=== PATIENT | male | born 1935 | race Caucasian/White ===

== ENCOUNTER 2020-09-17 01:16 | Emergency (ER) | payer MEDICARE ==
[2020-09-17 02:10] LABS: #Eosinphils 0.1 thou/uL (0.0-0.7); #Monocytes 0.8 thou/uL (0.11-0.59); #Neutrophils 6.2 thou/uL (1.40-6.50); %Basophils 0.5 % (0.0-1.0); %Lymphocytes 12.5 % (21.0-51.0); %Monocytes 9.5 % (0.0-10.0); %Neutrophils 76.6 % (42.0-75.0); Hemoglobin 15.6 g/dL (14.0-18.0); Mean Corpuscular HGB CONC 33.3 g/dL (32.0-36.0); Mean Corpuscular Volume 93.3 fL (78.0-98.0); Mean Platelet Volume 8.4 fL (7.4-10.4); Platelet Count 189 thou/uL (130-400); RBC Distribution Width 12.7 % (11.5-14.5); Red Blood Cell (RBC) Count 5.03 mill/uL (4.70-6.10); White Blood Cell (WBC) Count 8.2 thou/uL (4.8-10.8)
[2020-09-17 02:51] LABS: Albumin 3.8 g/dL (3.4-4.8)
[2020-09-17 02:52] LABS: Chloride 106 mmol/L (98-107); Potassium 3.7 mmol/L (3.5-5.1); Sodium 143 mmol/L (136-145)
[2020-09-17 02:53] LABS: Calcium 8.5 mg/dL (7.8-10.44); Glucose 92 mg/dL (83-110)
[2020-09-17 02:54] LABS: Globulin 1.9 g/dL (2.4-3.5); Protein, Total 5.7 g/dL (5.8-8.1)
[2020-09-17 02:55] LABS: Bilirubin Negative (Negative); Blood, Urine Negative (Negative); Clarity Clear (Clear); Glucose, Urine (Dipstick) Normal (Negative); Ketone, Urine Negative (Negative); Leukocyte Negative Leu/uL (Negative); Nitrite Negative (Negative); Protein, Urine (Dipstick) Negative (Neg-Trace); Specific Gravity, Urine 1.021 (1.002-1.036); Urobilinogen Normal mg/dL (Less than 2); pH, Urine 6.5 (5.0-9.0)
[2020-09-17 02:55] LABS: Anion Gap 13 mmol/L (10-20); Bilirubin, Total 0.7 mg/dL (0.2-1.2); Carbon Dioxide 28 mmol/L (23-31)
[2020-09-17 02:56] LABS: Alkaline Phosphatase 85 U/L (40-110)
[2020-09-17 02:57] LABS: Calc. Creatinine Clearance 0 mL/min (70-130)
[2020-09-17 02:58] LABS: BUN (Urea Nitrogen) 22 mg/dL (8.4-25.7)
[2020-09-17 02:59] LABS: AST (SGOT) 19 U/L (5-34)
[2020-09-17 03:00] LABS: ALT (SGPT) 15 U/L (8-55)
[2020-09-17] MEDS ORDERED: diphenhydrAMINE 25 MG CAP ONE (03:16)
--- NOTE | 2020-09-17 08:12 | CT ---
PRELIMINARY REPORT/[facility]/EMERGENCY AFTER HOURS PROCEDURE: EXAM: CT Head Without Intravenous Contrast. CLINICAL HISTORY: HX OF ALZHEIMER'S. STATES, "HE HAS NOT BEEN ACTING HIMSELF OVER THE PAST 24 HO URS. WE JUST MOVED HERE AND I THINK HE MAY NOT BE ADJUSTING WELL". DENIES ANY RECENT ILLNESS, N/V, FEVER, OR URINARY COMPLAINTS. STATES, "HE HAS BEEN COMBATIVE ALSO". TECHNIQUE: Axial computed tomography images of the head/brain without intravenous contrast. COMPARISON: None provided. FINDINGS: BRAIN: No acute intraparenchymal hemorrhage. No mass lesion. No CT evidence for acute territorial inf arct. No midline shift or extra-axial collection. Mild generalized cerebral atrophy. Mild subcortical and twila-ventricular white matter changes likely related chronic ischemic small vessel di sease. Arteriosclerosis. VENTRICLES: No hydrocephalus. ORBITS: The orbits are unremarkable. SINUSES AND MASTOIDS: The paranasal sinuses and mastoid air cells are clear. SOFT TISSUES: No significant facial or scalp soft tissue swelling evident. No radiopaque foreign body is seen. BONES: No acute skull fracture. IMPRESSION: No acute large vessel infarct, acute intracranial hemorrhage or intracranial mass lesion . ELECTRONICALLY SIGNED BY: Gus Vernon MD Sep 17, 2020 2:11:27 AM HOSPITAL ORDERLY FINAL REPORT EMERGENT AFTER HOURS NONCONTRAST CT HEAD: HISTORY: Altered mental status. COMPARISON: None. IMPRESSION: 1. No acute intracranial abnormality is demonstrated. 2. Cerebral volume loss and chronic small vessel ischemic changes. 3. Findings are in agreement with preliminary report by [facility]. Transcribed Date/Time: 09/17/2020 8:29 AM
--- NOTE | 2020-10-08 21:00 | EKG ---
Test Reason : AMS Blood Pressure : / mmHG Vent. Rate : 082 BPM Atrial Rate : 082 BPM P-R Int : 142 ms QRS Dur : 078 ms QT Int : 362 ms P-R-T Axes : 067 025 062 degrees QTc Int : 422 ms Normal sinus rhythm with sinus arrhythmia Septal infarct , age undetermined Abnormal ECG Confirmed by GIFTY GOODMAN ([id number]), film or videotape editor CRISTINA WALLIS ([id number]) on 10/08/2020 9:00:14 PM Referred By: Confirmed By:GIFTY GOODMAN
== END 2020-09-17 03:30 | disposition home or self-care (01) ==
LOC: ERS 01:16
DX: G47.00 Insomnia, unspecified (principal); R41.82 Altered mental status, unspecified; E78.00 Pure hypercholesterolemia, unspecified
CPT/HCPCS: 36415; 70450; 80053; 81003; 85025; 93005; Q0163